=== PATIENT | female | born 1965 | race Caucasian/White ===

== ENCOUNTER 2017-03-16 23:40 | Emergency (ER) | payer MEDICAID ==
[~2017-03-16] VITALS: Ht 149.9 cm; Wt 71.0 kg
[~2017-03-16 23:40] MED LIST: BENZ100C70 PO; CLIN-73 PO; METO-53 PO; TRAM50TA2 PO
[2017-03-16 23:46] VITALS: Ht 149.9 cm; Wt 71.0 kg
[2017-03-17] MEDS ORDERED: ONDA4TAB8 PO (00:41)
[2017-03-17] MEDS ORDERED: HYDR-906 PO (00:41)
[2017-03-17] MEDS ORDERED: IBUP-1542 PO (00:41)
[2017-03-17] MEDS ORDERED: ONDANSETRON (ODT) 4 MG TAB ODT STA (00:42)
[2017-03-17] MEDS ORDERED: HYDROCODONE/APAP (5/325) TAB PO ONE (01:00)
[2017-03-17 01:04] VITALS: BP 129/80; PULSE 56; RESP 17; TEMP 98
--- NOTE | 2017-03-17 22:15 | ERD ---
ER Documentation Chief Complaint Date/Time DATE: 03/17/17 TIME: 21:59 Chief Complaint headache x 1 day HPI This is a 51 year old female with a history of HTN who presents to the ED with headache and nausea for 1 day. Pt describes the headache as "pulling" that is gradual in onset and intermittent. Pain extends from the bilateral frontal to occipital area. Denies any episode of vomiting. Pt has been taking motrin and tylenol without any relief. Denies fever, chest pain, shortness of breath, vision changes, weakness, paresthesia or dizziness. Denies alcohol use, smoking or illicit drug use. ROS All systems reviewed and are negative except as per history of present illness. Medications Home Meds Active Scripts Ondansetron Hcl* (Zofran*) 4 Mg Tablet, 4 MG PO Q6H for NAUSEA AND/OR VOMITING, #30 TAB Prov:NNEKA SANFORD 03/17/17 Ibuprofen* (Motrin*) 600 Mg Tab, 600 MG PO Q6H Y for PAIN AND OR ELEVATED TEMP, #30 TAB Prov:NNEKA SANFORD 03/17/17 Hydrocodone/Acetaminophen ([place] 5-325 Tablet) 1 Each Tablet, 1 TAB PO Q6H Y for PAIN, #7 TAB Prov:NNEKA SANFORD 03/17/17 Benzonatate* (Tessalon Perle*) 100 Mg Capsule, 100 MG PO Q8H Y for COUGH for 3 Days, CAP Prov:SILVIA REYES 05/08/16 Clindamycin Hcl* (Clindamycin Hcl*) 300 Mg Capsule, 300 MG PO TID for 7 Days, CAP Prov:SILVIA REYES 05/08/16 Tramadol HCl (Tramadol HCl) 50 Mg Tablet, 50 MG PO Q6 Y for PAIN, #20 TAB Prov:WILLEM ALAS MD 01/10/16 Reported Medications Metoprolol (Lopressor) 50 Mg Tablet, 50 MG PO DAILY 11/02/12 Allergies Allergies: Coded Allergies: amoxicillin (Verified Allergy, Unknown, 03/16/17) PMhx/Soc History of Surgery: Yes (tubal ligation) Anesthesia Reaction: No Hx Neurological Disorder: No Hx Respiratory Disorders: No Hx Cardiac Disorders: Yes (HTN) Hx Psychiatric Problems: No Hx Miscellaneous Medical Probl: No Hx Alcohol Use: No Hx Substance Use: No Hx Tobacco Use: No Smoking Status: Never smoker Physical Exam Vitals Vital Signs Date Time Temp Pulse Resp B/P Pulse Ox O2 Delivery O2 Flow Rate FiO2 03/17/17 01:04 98.0 56 17 129/80 100 Room Air 03/16/17 23:46 97.9 59 20 133/68 100 Physical Exam Physical Exam CONST: Well-developed, well-nourished, in no acute distress. Nontoxic in appearance. HEENT: Tenderness on the scalp area. Atraumatic. Normal conjunctiva. EOM intact. TM intact. External ear is normal. Clear oropharynx without erythema. No uvular deviation. Moist mucous membranes. Supple neck. No meningismus. No submandibular induration. RESP: Clear to auscultation bilaterally. No wheezing. CARDIO: Regular rate and rhythm, no murmurs. ABD: Soft, non tender, non distended. Normal bowel sounds. No McBurney' s point tenderness. No guarding or rigidity. No peritoneal signs. SKIN: No petechiae or rashes. BACK: No midline or flank tenderness. EXT: No cyanosis or edema. Distal pulses equal and bilateral. NEURO: Awake and alert, appropriate for age. 5/5 strength in all extremities. Normal speech. Steady gait. Results 24 hrs Current Medications Medications (Trade) Dose Ordered Sig/Gladis Route PRN Reason Start Time Stop Time Status Last Admin Dose Admin Acetaminophen/ Hydrocodone Bitart ([place] (5/325)) 1 tab ONCE ONCE PO 03/17/17 01:00 03/17/17 01:01 DC 03/17/17 01:04 Ondansetron HCl (Zofran Odt) 4 mg ONCE STAT ODT 03/17/17 00:42 03/17/17 00:43 DC 03/17/17 01:04 Procedures/MDM EMERGENCY DEPARTMENT COURSE/MEDICAL DECISION MAKING This is a 51 year old female who comes to the emergency room secondary to complaints of headache and nausea The patient was given norco and zofran in the department. On re-evaluation, the patient's headache and nausea symptoms improved. Given the duration of the pt's symptoms and physical exam, diagnostic tests are unnecessary. I believe this is a tension type of headache based on physical exam. Pt's symptoms were improved by the medications. My primary diagnosis is headache. Secondary diagnosis is nausea Differential diagnoses considered but not limited to migraine, otitis media, otitis externa, rhinorrhea, MN, cerebral hemorrhage, sinusitis. Pt is hemodynamically stable upon reassessment. There are no new complaints during the ED course. The patient was discharged for outpatient management with a prescription for norco and zofran. The patient was advised to followup with their PMD in 1-2 days and to return to the Emergency Department if there are any new or worsening symptoms. The patient understood and agreed with the diagnosis, treatment and plan. Patient is stable for discharge at this time. Departure Diagnosis: Primary Impression: Headache Headache type: tension-type Headache chronicity pattern: acute headache Intractability: intractable Qualified Code: G44.201 - Acute intractable tension-type headache Additional Impression: Nausea Condition: Stable Patient Instructions: Self-Care for Headaches Referrals: [facility] Linda se gee hecho un examen mdico de control que le indica que no est en sumit condicin que requiera tratamiento urgente en el Departamento de Emergencia. Un estudio ms profundo y el tratamiento de ozuna condicin pueden esperar sin ningn riesgo hasta que usted sea atendida/o en el consultorio de ozuna mdico o sumit cl ele. Es responsabilidad suya arreglar sumit tosin para el seguimiento del bernardino. MANEJO DE CONDICIONES NO URGENTES EN EL FUTURO 1) Si usted tiene un mdico de atencin primaria: Usted debera llamar a ozuna mdico de atencin primaria antes de venir al departamento de emergencia. Despus de las horas de consultorio, ozuna doctor o ozuna asociado/a est disponible por telfono. El mdico o enfermero de nicole en el servicio telefnico puede asesorarle por daryl medio para atender el problema, o bernardino contrario se puede programar sumit tosin. 2) Si usted no tiene un mdico de atencin primaria: Llame al mdico o clnica de referencia que aparece abajo gaagndeep las horas de consultorio para hacer sumit tosin para que le vean. CLINICAS: [facility] [phone] [facility] [phone] [facility] [phone] [place] [phone] [place] [phone] [place] [phone] [facility]. [facility] () Usted se gee hecho un examen mdico de control que le indica que no est en sumit condicin que requiera tratamiento urgente en el Departamento de Emergencia. Un estudio ms profundo y el tratamiento de ozuna condicin pueden esperar sin ningn riesgo hasta que usted sea atendida/o en el consultorio de ozuna mdico o sumit cl ele. Es responsabilidad suya arreglar sumit tosin para el seguimiento del bernardino. MANEJO DE CONDICIONES NO URGENTES EN EL FUTURO 1) Si usted tiene un mdico de atencin primaria: Usted debera llamar a ozuna mdico de atencin primaria antes de venir al departamento de emergencia. Despus de las horas de consultorio, ozuna doctor o ozuna asociado/a est disponible por telfono. El mdico o enfermero de nicole en el servicio telefnico puede asesorarle por daryl medio para atender el problema, o bernardino contrario se puede programar sumit tosin. 2) Si usted no tiene un mdico de atencin primaria: Llame al mdico o condado institucions de referencia que aparece abajo gagandeep las horas de consultorio para hacer sumit tosin para que le vean. SI USTED NO PUEDE PAGAR PARA BELKIS UN MEDICO puede ir a: [facility] [address] [place] [address] [facility] [address] [place] [address] [facility] [address] [place] [address] [facility]A [facility] [address] [place], [place] [id number] Additional Instructions: Llame a ozuna mdico de atencin primaria maana para hacer sumit tosin gagandeep los pr ximos sarkar 1-2. Volver al Departamento de la emergencia inmediatamente si tiene cualquier s ntoma nuevo o que empeora. [employer] todos los medicamentos mini lo indique. NNEKA SANFORD March 17, 2017 22:13
== END 2017-03-17 01:34 | disposition home or self-care (01) ==
LOC: FTE 23:40
DX: G44.201 Tension-type headache, unspecified, intractable (principal); R11.0 Nausea; I10 Essential (primary) hypertension
CPT/HCPCS: Z7610 ×2; 99284

== ENCOUNTER 2017-03-20 12:09 | Emergency (ER) | payer MEDICAID ==
[~2017-03-20] VITALS: Ht 152.4 cm; Wt 67.0 kg
[~2017-03-20 12:09] MED LIST changes: +HYDR-906 PO; +IBUP-1542 PO; +ONDA4TAB8 PO
[2017-03-20 12:12] VITALS: Ht 152.4 cm; Wt 67.0 kg
[2017-03-20] MEDS ORDERED: LORA-441 PO (12:31)
[2017-03-20] MEDS ORDERED: BENA20TA65 PO (12:31)
[2017-03-20] MEDS ORDERED: FAMO40TA52 PO (12:32)
--- NOTE | 2017-03-20 12:43 | ERD ---
ER Documentation Chief Complaint Date/Time DATE: 03/20/17 TIME: 12:39 Chief Complaint "stress for 2 months is making my throat feel weird" HPI This 51-year-old female presents with a two-month history of stress as well as sensation of something in her throat that she just cannot swallow. She denies any pain or sensation of infection. She denies any chest pain or shortness of breath. Patient admits to being under stress from having an ill . Is also requesting refill on her hypertension medication. She denies abdominal pain, urinary complaints. ROS All systems reviewed and are negative except as per history of present illness. Medications Home Meds Active Scripts Famotidine* (Famotidine*) 40 Mg Tablet, 40 MG PO HS, #30 TAB Prov:LORA STEPHENS MD 03/20/17 Lorazepam* (Ativan*) 0.5 Mg Tablet, 0.5 MG PO BID Y for ANXIETY, #14 TAB Prov:LORA STEPHENS MD 03/20/17 Benazepril Hcl* (Lotensin*) 20 Mg Tablet, 20 MG PO DAILY, #30 TAB Prov:LORA STEPHENS MD 03/20/17 Ondansetron Hcl* (Zofran*) 4 Mg Tablet, 4 MG PO Q6H for NAUSEA AND/OR VOMITING, #30 TAB Prov:NNEKA SANFORD 03/17/17 Ibuprofen* (Motrin*) 600 Mg Tab, 600 MG PO Q6H Y for PAIN AND OR ELEVATED TEMP, #30 TAB Prov:NNEKA SANFORD 03/17/17 Hydrocodone/Acetaminophen ([place] 5-325 Tablet) 1 Each Tablet, 1 TAB PO Q6H Y for PAIN, #7 TAB Prov:NNEKA SANFORD 03/17/17 Benzonatate* (Tessalon Perle*) 100 Mg Capsule, 100 MG PO Q8H Y for COUGH for 3 Days, CAP Prov:SILVIA REYES 05/08/16 Clindamycin Hcl* (Clindamycin Hcl*) 300 Mg Capsule, 300 MG PO TID for 7 Days, CAP Prov:SILVIA REYES 05/08/16 Tramadol HCl (Tramadol HCl) 50 Mg Tablet, 50 MG PO Q6 Y for PAIN, #20 TAB Prov:WILLEM ALAS MD 01/10/16 Reported Medications Metoprolol (Lopressor) 50 Mg Tablet, 50 MG PO DAILY 11/02/12 Allergies Allergies: Coded Allergies: amoxicillin (Verified Allergy, Unknown, 03/16/17) PMhx/Soc History of Surgery: Yes (tubal ligation) Anesthesia Reaction: No Hx Neurological Disorder: No Hx Respiratory Disorders: No Hx Cardiac Disorders: Yes (HTN) Hx Psychiatric Problems: No Hx Miscellaneous Medical Probl: No Hx Alcohol Use: No Hx Substance Use: No Hx Tobacco Use: No Physical Exam Vitals Vital Signs Date Time Temp Pulse Resp B/P Pulse Ox O2 Delivery O2 Flow Rate FiO2 03/20/17 12:12 97.8 72 18 147/74 98 Physical Exam Const: [] Alert, [id number] per Head: Atraumatic Eyes: Normal Conjunctiva ENT: Normal External Ears, Nose and Mouth. TMs and oropharynx normal. Neck: Full range of motion..~ No meningismus. Resp: Clear to auscultation bilaterally Cardio: Regular rate and rhythm, no murmurs Abd: Soft, non tender, non distended. Normal bowel sounds Skin: No petechiae or rashes Back: No midline or flank tenderness Ext: No cyanosis, or edema Neur: Awake and alert Psych: Normal Mood and Affect Procedures/MDM Patient presents with signs and symptoms of a globus sensation. Her blood pressure is mildly elevated and she will be initiated on Lotensin. Patient does have a history of stress which may be causing her globus sensation. There is no signs or symptoms or history to suggest foreign body, airway obstruction, infection. Patient was advised that reflux can also cause her presenting symptoms. She will treated with a very short course of Ativan and Pepcid and a prescription of Lotensin for hypertension. Patient was advised to follow-up with primary doctor this week return to the ER for new or worsening symptoms. The patient was stable with no new complaints during the ER course. Clinically, there is no current evidence to suggest meningitis, sepsis, acute abdomen, pneumonia, acute coronary syndrome, pulmonary embolism, or any other emergent condition appearing to require further evaluation or hospitalization. The patient should certainly return for any new or worsening symptoms per the aftercare instructions. They should otherwise follow-up with her primary care doctor for reevaluation this week. Departure Diagnosis: Primary Impression: Hypertension Hypertension type: essential hypertension Qualified Code: I10 - Essential hypertension Additional Impression: Anxiety Condition: Stable Patient Instructions: High Blood Pressure (Hypertension), Anxiety Reaction, Gerd (Adult) Additional Instructions: POSIBLEMENTE STRESS O ACIDO ( REFLUX) Cheque otro vez con ozuna doctor primario en el proximo lerma or regresa para mas o nueva simptomas. LORA STEPHENS MD March 20, 2017 12:43
== END 2017-03-20 13:18 | disposition home or self-care (01) ==
LOC: FTE 12:09
DX: I10 Essential (primary) hypertension (principal); F41.9 Anxiety disorder, unspecified
CPT/HCPCS: 99284

== ENCOUNTER 2017-04-06 19:28 | Emergency (ER) | payer MEDICAID ==
[~2017-04-06] VITALS: Ht 152.4 cm; Wt 70.5 kg
[~2017-04-06 19:28] MED LIST changes: +BENA20TA65 PO; +FAMO40TA52 PO; +LORA-441 PO
[2017-04-06 19:35] VITALS: Ht 152.4 cm; Wt 70.5 kg
[2017-04-06] MEDS ORDERED: IBUP-1542 PO (19:58)
[2017-04-06] MEDS ORDERED: AZIT250T94 PO (19:58)
--- NOTE | 2017-04-06 20:07 | ERD ---
ER Documentation Chief Complaint Date/Time DATE: 04/06/17 TIME: 20:06 Chief Complaint headache x 3 days, sore throat HPI 41-year-old female presents here in emergency department for complaints of headache sore throat fever for 3 days. Patient's complaint of sore throat burning pain 6/10 scale, worse upon swallowing. Patient is complaining of headache throbbing pain 4/10 scale, accompanied other symptoms. Patient did not take medications symptoms. Patient's son is sick also with viral illness. ROS All systems reviewed and are negative except as per history of present illness. Medications Home Meds Active Scripts Ibuprofen* (Motrin*) 600 Mg Tab, 600 MG PO Q6H Y for PAIN AND OR ELEVATED TEMP, #30 TAB Prov:GEREMIAS MILLS NP 04/06/17 Azithromycin* (Zithromax*) 250 Mg Tablet, 250 MG PO .ZPACK DIRECTED, #6 TAB TAKE 500 MG (2 TABS) THE FIRST DAY THEN 250 MG (1 TAB) DAYS 2-5 Prov:GEREMIAS MILLS NP 04/06/17 Famotidine* (Famotidine*) 40 Mg Tablet, 40 MG PO HS, #30 TAB Prov:LORA STEPHENS MD 03/20/17 Lorazepam* (Ativan*) 0.5 Mg Tablet, 0.5 MG PO BID Y for ANXIETY, #14 TAB Prov:LORA STEPHENS MD 03/20/17 Benazepril Hcl* (Lotensin*) 20 Mg Tablet, 20 MG PO DAILY, #30 TAB Prov:LORA STEPHENS MD 03/20/17 Ondansetron Hcl* (Zofran*) 4 Mg Tablet, 4 MG PO Q6H for NAUSEA AND/OR VOMITING, #30 TAB Prov:NNEKA SANFORD 03/17/17 Ibuprofen* (Motrin*) 600 Mg Tab, 600 MG PO Q6H Y for PAIN AND OR ELEVATED TEMP, #30 TAB Prov:NNEKA SANFORD 03/17/17 Hydrocodone/Acetaminophen ([place] 5-325 Tablet) 1 Each Tablet, 1 TAB PO Q6H Y for PAIN, #7 TAB Prov:NNEKA SANFORD 03/17/17 Benzonatate* (Tessalon Perle*) 100 Mg Capsule, 100 MG PO Q8H Y for COUGH for 3 Days, CAP Prov:SILVIA REYES 05/08/16 Clindamycin Hcl* (Clindamycin Hcl*) 300 Mg Capsule, 300 MG PO TID for 7 Days, CAP Prov:SILVIA REYES 05/08/16 Tramadol HCl (Tramadol HCl) 50 Mg Tablet, 50 MG PO Q6 Y for PAIN, #20 TAB Prov:WILLEM ALAS MD 01/10/16 Reported Medications Metoprolol (Lopressor) 50 Mg Tablet, 50 MG PO DAILY 11/02/12 Allergies Allergies: Coded Allergies: amoxicillin (Verified Allergy, Unknown, 03/20/17) PMhx/Soc History of Surgery: Yes (tubal ligation) Anesthesia Reaction: No Hx Neurological Disorder: No Hx Respiratory Disorders: No Hx Cardiac Disorders: Yes (HTN) Hx Psychiatric Problems: Yes (anxiety) Hx Miscellaneous Medical Probl: No Hx Alcohol Use: No Hx Substance Use: No Hx Tobacco Use: No FmHx Family History: No coronary disease, No diabetes, No other Physical Exam Vitals Vital Signs Date Time Temp Pulse Resp B/P Pulse Ox O2 Delivery O2 Flow Rate FiO2 04/06/17 19:35 97.7 73 20 132/64 100 Physical Exam GENERAL: The patient is well developed and appropriate for usual state of health, in no apparent distress. HEENT: Atraumatic. Ears: Normal tympanic membrane, no erythema or bulging. No ear canal swelling. No ear discharge. Nose: normal nasal turbinates, no erythema or swelling. Normal nasal discharge. Throat: oropharynx erythematous with bilateral tonsillar swelling and tonsillar exudates noted. No lymphadenopathy. CHEST: Clear to auscultation bilaterally. There are no rales, wheezes or rhonchi. HEART: Regular rate and rhythm. No murmurs, clicks, rubs or gallops. No S3 or S4. ABDOMEN: Soft, nontender and nondistended. Good bowel sounds. No rebound or guarding. No gross peritonitis. No gross organomegaly or masses. No Vasquez sign or McBurney point tenderness. BACK: No midline or flank tenderness. EXTREMITIES: Equal pulses bilaterally. There is no peripheral clubbing, cyanosis or edema. No focal swelling or erythema. Full range of motion. Grossly neurovascularly intact. NEURO: Alert and oriented. Cranial nerves 2-12 intact. Motor strength in all 4 extremities with 5/5 strength. Sensation grossly intact. Normal speech and gait. SKIN: There is no apparent rash or petechia. The skin is warm and dry. HEMATOLOGIC AND LYMPHATIC: There is no evidence of excessive bruising or lymphedema. No gross cervical, axillary, or inguinal lymphadenopathy. Procedures/MDM Medical decision making: Patient symptoms is likely consistent with acute bacterial pharyngitis, most likely strep throat. Low suspicion for peritonsillar abscess, mononucleosis, no symptoms of epiglottitis, laryngitis. No oral airway obstruction noted. No symptoms of sepsis at this time. Patient appears well and is hemodynamically stable. Patient was given for amoxicillin, ibuprofen, is advised to follow-up with primary care doctor in 2-3 days for reevaluation of symptoms. Patient is advised to do salt water gargles. Patient is advised to return to emergency department for worsening symptoms. Disposition: Home. Stable. Departure Diagnosis: Primary Impression: Acute bacterial pharyngitis Condition: Stable Patient Instructions: Pharyngitis, Strep (Presumed) GEREMIAS MILLS NP April 06, 2017 20:07
== END 2017-04-06 20:01 | disposition home or self-care (01) ==
LOC: E/R 19:28
DX: J02.9 Acute pharyngitis, unspecified (principal); I10 Essential (primary) hypertension
CPT/HCPCS: 99283

== ENCOUNTER 2017-04-21 21:11 | Emergency (ER) | payer MEDICAID ==
[~2017-04-21] VITALS: Ht 147.3 cm; Wt 68.5 kg
[~2017-04-21 21:11] MED LIST changes: +AZIT250T94 PO
[2017-04-21 21:14] VITALS: Ht 147.3 cm; Wt 68.5 kg
[2017-04-21 22:09] VITALS: BP 130/82; PULSE 77; RESP 18; TEMP 98.1
--- NOTE | 2017-04-21 22:10 | ERA ---
ER Documentation Chief Complaint Date/Time DATE: 04/21/17 TIME: 22:09 Chief Complaint chest burning HPI The patient is a 51-year-old female, presenting to the ER because of multiple complaint, chest burning, bitemporal headache, anxious for 1 day since her hospital and was admitted to the hospital. The chest pain is nonspecific, no aggravating or relieving factor. She denies any chest pain with exertion or vomiting or diaphoresis. He denies abdominal pain, vomiting, dysuria, diarrhea. She has not been taking her antihypertensive medication for the last 4 days because he ran out. She does not smoke nor drink Past medical history: Hypertension Past surgical history: 2 ROS All systems reviewed and are negative except as per history of present illness. Medications Home Meds Active Scripts Amlodipine Besylate* (Norvasc*) 5 Mg Tablet, 5 MG PO DAILY, #14 TAB Prov:MOISES EPPS MD 04/21/17 Discontinued Reported Medications Metoprolol (Lopressor) 50 Mg Tablet, 50 MG PO DAILY 11/02/12 Discontinued Scripts Ibuprofen* (Motrin*) 600 Mg Tab, 600 MG PO Q6H Y for PAIN AND OR ELEVATED TEMP, #30 TAB Prov:GEREMIAS MILLS NP 04/06/17 Azithromycin* (Zithromax*) 250 Mg Tablet, 250 MG PO .CalistaPACK DIRECTED, #6 TAB TAKE 500 MG (2 TABS) THE FIRST DAY THEN 250 MG (1 TAB) DAYS 2-5 Prov:GEREMIAS MILLS NP 04/06/17 Famotidine* (Famotidine*) 40 Mg Tablet, 40 MG PO HS, #30 TAB Prov:LORA STEPHENS MD 03/20/17 Lorazepam* (Ativan*) 0.5 Mg Tablet, 0.5 MG PO BID Y for ANXIETY, #14 TAB Prov:LORA STEPHENS MD 03/20/17 Benazepril Hcl* (Lotensin*) 20 Mg Tablet, 20 MG PO DAILY, #30 TAB Prov:LORA STEPHENS MD 03/20/17 Ondansetron Hcl* (Zofran*) 4 Mg Tablet, 4 MG PO Q6H for NAUSEA AND/OR VOMITING, #30 TAB Prov:NNEKA SANFORD 03/17/17 Ibuprofen* (Motrin*) 600 Mg Tab, 600 MG PO Q6H Y for PAIN AND OR ELEVATED TEMP, #30 TAB Prov:NNEKA SANFORD 03/17/17 Hydrocodone/Acetaminophen ([place] 5-325 Tablet) 1 Each Tablet, 1 TAB PO Q6H Y for PAIN, #7 TAB Prov:NNEKA SANFORD 03/17/17 Benzonatate* (Tessalon Perle*) 100 Mg Capsule, 100 MG PO Q8H Y for COUGH for 3 Days, CAP Prov:SILVIA REYES 05/08/16 Clindamycin Hcl* (Clindamycin Hcl*) 300 Mg Capsule, 300 MG PO TID for 7 Days, CAP Prov:ERCI,SILVIA C 05/08/16 Tramadol HCl (Tramadol HCl) 50 Mg Tablet, 50 MG PO Q6 Y for PAIN, #20 TAB Prov:WILLEM ALAS MD 01/10/16 Allergies Allergies: Coded Allergies: amoxicillin (Verified Allergy, Unknown, 04/21/17) PMhx/Soc History of Surgery: Yes (tubal ligation) Anesthesia Reaction: No Hx Neurological Disorder: No Hx Respiratory Disorders: No Hx Cardiac Disorders: Yes (HTN) Hx Psychiatric Problems: Yes (anxiety) Hx Miscellaneous Medical Probl: No Hx Alcohol Use: No Hx Substance Use: No Hx Tobacco Use: No Physical Exam Vitals Vital Signs Date Time Temp Pulse Resp B/P Pulse Ox O2 Delivery O2 Flow Rate FiO2 04/21/17 22:09 98.1 77 18 130/82 100 Room Air 04/21/17 21:14 98.7 70 18 151/92 98 Physical Exam Const: No acute distress. Head: Atraumatic. Eyes: Normal Conjunctiva. ENT: Normal External Ears, Nose and Mouth. Neck: Full range of motion. No meningismus. Resp: Clear to auscultation bilaterally. Cardio: Regular rate and rhythm. Mild left-sided chest discomfort with palpation, no crepitus, no erythema Abd: Soft, non distended, normal bowel sounds, non tender. Skin: No petechiae or rashes. Back: No midline or flank tenderness. Ext: No cyanosis, or edema. Neur: Awake and alert. No focal deficit Psych: Normal Mood and Affect. Results 24 hrs Current Medications Medications (Trade) Dose Ordered Sig/Gladis Route PRN Reason Start Time Stop Time Status Last Admin Dose Admin Acetaminophen (Tylenol Tab) 650 mg ONCE ONCE PO 04/21/17 22:30 04/21/17 22:31 DC 04/21/17 22:20 Procedures/MDM EKG: Read by emergency physician Rate/Rhythm: Normal Sinus Rhythm 61 beats/min QRS, ST, T-waves: No ST elevation, no T inversion Impression: Normal EKG MEDICAL MAKING DECISION: The patient is a 51-year-old female, presenting with acute distress, medical noncompliance. She was treated with Tylenol for her headache with good response The differential diagnoses considered include but are not limited to acute coronary syndrome, acute myocardial infarction, pericarditis, pulmonary embolism , aortic dissection, pneumonia, pleural effusion, pneumothorax, GERD, chest wall pain. Departure Diagnosis: Primary Impression: Acute reaction to stress Additional Impression: Hypertension Condition: Good Comments She was discharged with Norvasc 5 mg daily I discussed the findings with the patient. I advised the patient to follow-up with the primary physician in about 1-2 days, sooner if needed and return if any concern. MOISES EPPS MD Apr 21, 2017 22:10
[2017-04-21] MEDS ORDERED: AMLO5TAB4 PO (22:16)
[2017-04-21] MEDS ORDERED: ACETAMINOPHEN 325 MG TAB PO ONE (22:30)
== END 2017-04-21 22:30 | disposition home or self-care (01) ==
LOC: E/R 21:11
DX: F43.0 Acute stress reaction (principal); I10 Essential (primary) hypertension
CPT/HCPCS: 93005; Z7502; Z7610

== ENCOUNTER 2017-11-19 16:16 | Emergency (ER) | END 2017-11-19 17:19 | disposition home or self-care (01) ==

== ENCOUNTER 2017-12-01 10:48 | Emergency (ER) | END 2017-12-01 13:19 | disposition home or self-care (01) ==

== ENCOUNTER 2018-04-14 20:30 | Emergency (ER) | END 2018-04-15 00:40 | disposition home or self-care (01) ==

== ENCOUNTER 2019-05-20 11:42 | Emergency (ER) | payer OTHER ==
[~2019-05-20] VITALS: Wt 70.0 kg
[~2019-05-20 11:42] MED LIST changes: +ACET500C5 PO; +ALBU8.5H8 INH; +AMLO5TAB4 PO; +AZIT250T PO; -AZIT250T94 PO; -BENA20TA65 PO; +BENZ-6 PO; -BENZ100C70 PO; -CLIN-73 PO; +D-ME473S2 PO; -FAMO40TA52 PO; -HYDR-906 PO; -LORA-441 PO; -METO-53 PO; +PRED20TA PO; -TRAM50TA2 PO
[2019-05-20 11:46] VITALS: BP 130/78; PULSE 89; RESP 18
[2019-05-20] MEDS ORDERED: GUAI100S PO (12:15)
[2019-05-20] MEDS ORDERED: AZIT500T2 PO (12:15)
--- NOTE | 2019-05-20 12:16 | ERD ---
ER Documentation Chief Complaint Chief Complaint COUGH X FEW DAYS HPI 53-year-old female presenting with cough x3 days. Patient states that she is been coughing up some phlegm as well. Patient denies any sick contacts. Patient denies any fever chills nausea vomiting. Patient denies any shortness of breath or chest pain. Patient states she has a history of diabetes and high blood pressure. Patient denies any allergies to medications ROS All systems reviewed and are negative except as per history of present illness. Medications Home Meds Active Scripts Guaifenesin (Guaiatussin) 100 Mg/5 Ml Syrup, 100 MG PO BID for 7 Days, ML Prov:PERLA COTE PA-C 05/20/19 Azithromycin* (Zithromax* Tri-David) 500 Mg Tablet, 500 MG PO DAILY for 3 Days, TAB Prov:PERLA COTE PA-C 05/20/19 Ibuprofen* (Motrin*) 600 Mg Tab, 600 MG PO Q6H PRN for PAIN AND OR ELEVATED TEMP, #30 TAB Prov:FELIX BALTAZAR PA-C 04/15/18 Dextromethorphan Hb-Promethazine Hcl* (Promethazine DM* Syrup) 473 Ml Syrup, 5 ML PO Q6 PRN for COUGH, #100 ML Prov:PATRICIA SHEPPARD PA-C 12/01/17 Benzonatate* (Tessalon Perle*) 100 Mg Capsule, 100 MG PO Q8H PRN for COUGH, #20 CAP Prov:DONAL DUNCAN 11/19/17 Prednisone* (Prednisone*) 20 Mg Tab, 40 MG PO DAILY for 5 Days, TAB Prov:DONAL DUNCAN 11/19/17 Ondansetron Hcl* (Zofran*) 4 Mg Tablet, 4 MG PO Q8H PRN for NAUSEA AND/OR VOMITING, #30 TAB Prov:DONAL DUNCAN 11/19/17 Albuterol Sulfate* (Proair HFA*) 8.5 Gm Hfa.aer.ad, 2 PUFF INH Q4, #1 INHALER Prov:DONAL DUNCAN 11/19/17 Acetaminophen* (Tylophen*) 500 Mg Capsule, 1 CAP PO Q6H PRN for PAIN AND OR ELEVATED TEMP, #20 CAP Prov:DONAL DUNCAN 11/19/17 Azithromycin* (Zithromax*) 250 Mg Tablet, 250 MG PO .ZPACK DIRECTED, #6 TAB TAKE 500 MG (2 TABS) THE FIRST DAY THEN 250 MG (1 TAB) DAYS 2-5 Prov:DONAL DUNCAN 11/19/17 Amlodipine Besylate* (Norvasc*) 5 Mg Tablet, 5 MG PO DAILY, #14 TAB Prov:MOISES EPPS MD 04/21/17 Allergies Allergies: Coded Allergies: amoxicillin (Verified Allergy, Unknown, 05/20/19) PMhx/Soc History of Surgery: Yes (C SECTION) Anesthesia Reaction: No Hx Neurological Disorder: No Hx Respiratory Disorders: No Hx Cardiac Disorders: Yes (HTN) Hx Psychiatric Problems: No Hx Miscellaneous Medical Probl: Yes ( Prediabetic, HLD) Hx Alcohol Use: No Hx Substance Use: No Hx Tobacco Use: No Smoking Status: Never smoker FmHx Family History: No diabetes, No coronary disease, No other Physical Exam Vitals Vital Signs Date Temp Pulse Resp B/P (MAP) Pulse Ox O2 O2 Flow FiO2 Time Delivery Rate 05/20/19 98.1 89 18 130/78 99 11:46 (95) Physical Exam Const: No acute distress Head: Atraumatic Eyes: Normal Conjunctiva ENT: Normal External Ears, Nose and Mouth. Neck: Full range of motion. No meningismus. Resp: Clear to auscultation bilaterally Cardio: Regular rate and rhythm, no murmurs Abd: Soft, non tender, non distended. Normal bowel sounds Skin: No petechiae or rashes Back: No midline or flank tenderness Ext: No cyanosis, or edema Neur: Awake and alert Psych: Normal Mood and Affect Procedures/MDM Medical decision making: Patient is a 53-year-old female presenting with productive cough x3 days. Patient is afebrile and states that she has not been running a fever at all. Patient's O2 saturations were 99% on room air and vitals were all normal limits. Physical exam was unremarkable. Patient is very concerned that she has a bacterial infection. I advised the patient that this is most likely due to a viral illness and that she should take guaifenesin for the cough and stay hydrated. Patient was very adamant about receiving an antibiotic and states she does not care if this is viral that she wants an antibiotic. At this time I have low suspicion for pneumonia, otitis media, otitis externa, strep pharyngitis, pharyngeal abscess, CHF, meningitis. Advised the patient that she needs to follow-up with her primary care provider in 1 to 2 days regarding this visit but symptoms worsen she needs to return to ER immediately. Patient is in agreement to the treatment plan and had no further questions upon discharge. Prescription for home: Z-David Guaifenesin I have discussed with the patient proper use and common side effects to expert with the medication . I advised the patient/family to speak with the pharmacist dispensing the medication to be advised of any potential drug interactions with other medication or supplements they may be taking. Discharge: At this time, patient is stable for discharge and outpatient management. I have instructed the patient to follow-up with his\her primary care physician in 1 to 2 days. I have discussed with the patient the possibility of needing to see a specialist for further work-up and imaging studies if symptoms persist. I have instructed the patient to promptly return to the ER for any new or worsening symptoms including increased pain, fever, nausea, vomiting, weakness or LOC. The patient and\or family expressed understanding of and agreement with this plan. All questions were answered. Home care instructions were provided. Disclaimer: Inadvertent spelling and grammatical errors are likely due to EHR\dictation software use and do not reflect on the overall quality of patient care. Also, please note that the electronic time recorded on the note does not necessarily reflect the actual time of the patient encounter. Departure Diagnosis: Primary Impression: Pharyngitis Pharyngitis/tonsillitis etiology: unspecified etiology Qualified Codes: J02.9 - Acute pharyngitis, unspecified Additional Impression: Cough Patient Instructions: Cough, Chronic, Uncertain Cause, (Adult) Referrals: COMMUNITY CLINICS YOU HAVE RECEIVED A MEDICAL SCREENING EXAM AND THE RESULTS INDICATE THAT YOU DO NOT HAVE A CONDITION THAT REQUIRES URGENT TREATMENT IN THE EMERGENCY DEPARTMENT. FURTHER EVALUATION AND TREATMENT OF YOUR CONDITION CAN WAIT UNTIL YOU ARE SEEN IN YOUR DOCTORS OFFICE WITHIN THE NEXT 1-2 DAYS. IT IS YOUR RESPONSIBILITY TO MAKE AN APPOINTMENT FOR FOLOW-UP CARE. IF YOU HAVE A PRIMARY DOCTOR --you should call your primary doctor and schedule an appointment IF YOU DO NOT HAVE A PRIMARY DOCTOR YOU CAN CALL OUR PHYSICIAN REFERRAL HOTLINE AT IF YOU CAN NOT AFFORD TO SEE A PHYSICIAN YOU CAN CHOSE FROM THE FOLLOWING [facility] [address] [facility] [address] [place] [facility] [address] [facility] [address] [facility] [address] [facility]. [facility]. [address] [facility]. [facility] YOU HAVE RECEIVED A MEDICAL SCREENING EXAM AND THE RESULTS INDICATE THAT YOU DO NOT HAVE A CONDITION THAT REQUIRES URGENT TREATMENT IN THE EMERGENCY DEPARTMENT. FURTHER EVALUATION AND TREATMENT OF YOUR CONDITION CAN WAIT UNTIL YOU ARE SEEN IN YOUR DOCTORS OFFICE WITHIN THE NEXT 1-2 DAYS. IT IS YOUR RESPONSIBILITY TO MAKE AN APPOINTMENT FOR FOLOW-UP CARE. IF YOU HAVE A PRIMARY DOCTOR --you should call your primary doctor and schedule and appointment IF YOU DO NOT HAVE A PRIMARY DOCTOR YOU CAN CALL OUR PHYSICIAN REFERRAL HOTLINE AT . IF YOU CAN NOT AFFORD TO SEE A PHYSICIAN YOU CAN CHOSE FROM THE FOLLOWING [facility]: [facility] [address] [place] [address] [facility] [address] [place] [address] [facility] [address] [place] [address] Additional Instructions: Llame al doctor MAANA y majo sumit MUSA PARA DENTRO DE 1-2 BERNARD.Dgale a la secretaria que nosotros le instruimos hacer esta musa.Avise o llame si ozuna condicin se empeora antes de la musa. Regresa aqui si peor o no mejor. PERLA COTE PA-C May 20, 2019 12:16
== END 2019-05-20 12:27 | disposition home or self-care (01) ==
LOC: FTE 11:42
DX: J02.9 Acute pharyngitis, unspecified (principal); I10 Essential (primary) hypertension
CPT/HCPCS: 99283

== ENCOUNTER 2019-06-14 11:47 | Day surgery (SDC) | payer OTHER ==
[~2019-06-14] VITALS: Ht 152.4 cm; Wt 72.0 kg
[~2019-06-14 11:47] MED LIST changes: +AZIT500T2 PO; +DIPH25CA42 PO; +GUAI100S PO; +LISI40TA3 PO; +METF500T PO; +METR-122 PO; +OMEPRAZOLE; +PANT40TA4 PO
[2019-06-14 13:08] VITALS: Ht 152.4 cm; Wt 72.0 kg
--- NOTE | 2019-06-14 13:21 | PREAC ---
Date/Time of Note Date/Time of Note DATE: 06/14/19 TIME: : Anesthesia Eval and Record Evaluation Time Pre-Procedure Interview DATE: 06/14/19 TIME: 13:19 Age 53 Sex female NPO: 8 hrs Preoperative diagnosis Screening Planned procedure Colonoscopy Past Medical History Past Medical History: Includes Cardio: HTN Endo: Diabetes Pulm: Asthma GI: Obesity Surgery & Anesthesia Issues No known issue Meds Anticoagulation: No Beta Erica within 24 hr: No Reason Beta Erica not given: Pt. not on B-Erica Active Scripts Amlodipine Besylate* (Norvasc*) 5 Mg Tablet, 5 MG PO DAILY, #14 TAB Prov:MOISES EPPS MD 04/21/17 Reported Medications Lisinopril* (Lisinopril*) 40 Mg Tablet, 40 MG PO DAILY, #30 TAB 06/14/19 Pantoprazole (Protonix) 40 Mg Tabec, 40 MG PO DAILY, TAB 06/14/19 Diphenhydramine Hcl (Banophen) 25 Mg Capsule, 25 MG PO, CAP 06/14/19 Metronidazole* (Metronidazole*) 500 Mg Tablet, 500 MG PO BID, TAB 06/14/19 [Omeprazole] No Conflict Check 06/14/19 Metformin Hcl (Glucophage) 500 Mg Tablet, 500 MG PO WITH MEALS, #90 TAB 06/14/19 Discontinued Scripts Guaifenesin (Guaiatussin) 100 Mg/5 Ml Syrup, 100 MG PO BID for 7 Days, ML Prov:PERLA COTE PA-C 05/20/19 Azithromycin* (Zithromax* Tri-David) 500 Mg Tablet, 500 MG PO DAILY for 3 Days, TAB Prov:PERLA COTEC 05/20/19 Ibuprofen* (Motrin*) 600 Mg Tab, 600 MG PO Q6H PRN for PAIN AND OR ELEVATED TEMP, #30 TAB Prov:FELIX BALTAZARC 04/15/18 Dextromethorphan Hb-Promethazine Hcl* (Promethazine DM* Syrup) 473 Ml Syrup, 5 ML PO Q6 PRN for COUGH, #100 ML Prov:PATRICIA SHEPPARDC 12/01/17 Benzonatate* (Tessalon Perle*) 100 Mg Capsule, 100 MG PO Q8H PRN for COUGH, #20 CAP Prov:DONAL DUNCAN 11/19/17 Prednisone* (Prednisone*) 20 Mg Tab, 40 MG PO DAILY for 5 Days, TAB Prov:DONAL DUNCAN 11/19/17 Ondansetron Hcl* (Zofran*) 4 Mg Tablet, 4 MG PO Q8H PRN for NAUSEA AND/OR VOMITING, #30 TAB Prov:DONAL DUNCAN 11/19/17 Albuterol Sulfate* (Proair HFA*) 8.5 Gm Hfa.aer.ad, 2 PUFF INH Q4, #1 INHALER Prov:DONAL DUNCAN 11/19/17 Acetaminophen* (Tylophen*) 500 Mg Capsule, 1 CAP PO Q6H PRN for PAIN AND OR ELEVATED TEMP, #20 CAP Prov:DONAL DUNCAN 11/19/17 Azithromycin* (Zithromax*) 250 Mg Tablet, 250 MG PO .ZPACK DIRECTED, #6 TAB TAKE 500 MG (2 TABS) THE FIRST DAY THEN 250 MG (1 TAB) DAYS 2-5 Prov:DONAL DUNCAN 11/19/17 Meds reviewed: Yes Allergies Coded Allergies: amoxicillin (Verified Allergy, Unknown, 05/20/19) Allergies Reviewed: Yes Labs/Studies Labs Reviewed: Reviewed by anesthesiologist test: N/A Studies: ECG (n/a), CXR (n/a) Pre-procedure Exam Airway: Adequate mouth opening, Adequate thyromental dist Mallampati: Mallampati II Teeth: Normal Lung: Normal Heart: Normal ASA Physical Status ASA physical status: 3 Emergency: None Planned Anesthetic General/MAC: MAC Planned Pain Management Parenteral pain med Pre-operative Attestations Prior to commencing anesthesia and surgery, the patient was re-evaluated, there was verification of: *The patient's identity *The results of appropriate recent lab work and preoperative vital signs *The above evaluation not changing prior to induction *Anesthetic plan, risk benefits, alternative and complications discussed with patient/family; questions answered; patient/family understands, accepts and wishes to proceed. BLAZE CASTELLANOS MD Jun 14, 2019 13:21
[2019-06-14 13:35] VITALS: BP 128/74; PULSE 75; RESP 16
[2019-06-14] MEDS ORDERED: PROPOFOL 20 ML ONE ×2 (15:31)
--- NOTE | 2019-06-14 15:31 | PAC ---
Date/Time of Note Date/Time of Note DATE: 06/14/19 TIME: 15:31 Post-Anesthesia Notes Post-Anesthesia Note Last documented vital signs Vital Signs Date Temp Pulse Resp B/P (MAP) Pulse Ox O2 O2 Flow FiO2 Time Delivery Rate 06/14/19 98.9 75 16 128/74 99 Room Air 15:25 (92) Activity: WNL Respiratory function: WNL Cardiovascular function: WNL Mental status: Baseline Pain reasonably controlled: Yes Hydration appropriate: Yes Nausea/Vomiting absent: Yes BLAZE CASTELLANOS MD Jun 14, 2019 15:31
[2019-06-14 15:52] VITALS: BP 119/93; PULSE 90; RESP 18
== END 2019-06-14 15:46 | disposition home or self-care (01) ==
LOC: GIL 11:47
PROVIDERS: ATTEND Internal Medicine Gastroenterology
DX: Z12.11 Encounter for screening for malignant neoplasm of colon (principal); K64.8 Other hemorrhoids; E11.9 Type 2 diabetes mellitus without complications; E78.5 Hyperlipidemia, unspecified; J45.909 Unspecified asthma, uncomplicated; Z79.84 Long term (current) use of oral hypoglycemic drugs
CPT/HCPCS: 45378; 82962; Z7610

== ENCOUNTER 2019-09-04 10:30 | Emergency (ER) | payer OTHER ==
[~2019-09-04] VITALS: Ht 152.4 cm; Wt 80.0 kg
[~2019-09-04 10:30] MED LIST changes: -ACET500C5 PO; -ALBU8.5H8 INH; -AZIT250T PO; -AZIT500T2 PO; -D-ME473S2 PO; -GUAI100S PO; -IBUP-1542 PO; -ONDA4TAB8 PO; -PRED20TA PO
[2019-09-04 10:35] VITALS: BP 135/78; PULSE 89; RESP 18; Ht 152.4 cm; Wt 80.0 kg
== END 2019-09-04 11:54 | disposition home or self-care (01) ==
LOC: FTE 10:30
DX: J06.9 Acute upper respiratory infection, unspecified (principal); I10 Essential (primary) hypertension; Z79.84 Long term (current) use of oral hypoglycemic drugs
CPT/HCPCS: 99283